=== PATIENT | female | born 1995 | race Caucasian/White ===

== ENCOUNTER 2018-06-28 12:54 | Emergency (ER) | payer OTHER ==
[~2018-06-28] VITALS: Ht 167.6 cm; Wt 65.9 kg
[2018-06-28 12:59] VITALS: BP 117/70; TEMP 97.7
[2018-06-28 15:38] VITALS: PULSE 63
== END 2018-06-28 15:40 | disposition home or self-care (01) ==
LOC: COL.ER 12:54
DX: R51 Headache (principal); Z87.820 Personal history of traumatic brain injury
CPT/HCPCS: J1200; J1885; J2765; J7030